=== PATIENT | male | born 1970 | race Caucasian/White ===

== ENCOUNTER 2017-05-01 09:19 | Emergency (ER) | payer OTHER ==
[~2017-05-01] VITALS: Ht 165.1 cm; Wt 65.0 kg
[2017-05-01 09:24] VITALS: BP 147/89; PULSE 79; RESP 16; TEMP 98; O2SAT 98
[2017-05-01] MEDS ORDERED: PRAZ5CAP PO (09:34)
[2017-05-01] MEDS ORDERED: VENL75TA PO (09:34)
[2017-05-01] MEDS ORDERED: ATOR20TA15 PO (09:34)
[2017-05-01] MEDS ORDERED: LORA-650 PO (09:34)
[2017-05-01] MEDS ORDERED: SODIUM CHLOR 0.9% 1000 ML INJ 1,000 ML IV ONE (09:36)
--- NOTE | 2017-05-01 09:42 | PD ---
HPI Chief Complaint: Neuro Symptoms/ Deficits Time Seen by Provider: 09:36 Travel History International Travel<30 days: No Contact w/Intl Traveler<30days: No Traveled to known affect area: No History of Present Illness HPI 46-year-old male with history of migraine headaches, hypertension, presents to the ER today because he has had 3 days' history of headaches, this morning woke up and started having tingling around his lips and in his left arm, drove himself from [place] to the [place], was sent in for further evaluation for neurological symptoms. He states that he feels like his head is "swimming", feels like he was dizzy. He denies any difficulty walking, and numbness, weakness, or any other symptoms. He denies any chest pains, shortness of breath , vomiting, vision change, or other issues. He states that the headache is now just about gone. Modifying Factors: None Associated Signs & Symptoms: Headaches, paresthesias in the lip and left arm Risk Factors: History of migraine headaches PFSH Past Medical History Arthritis: Yes High Cholesterol: Yes GERD: Yes Headaches: Yes Kidney Stones: Yes Pneumonia: Yes Influenza Vaccination: Yes Past Surgical History Cholecystectomy: Yes Genitourinary Surgery: Yes (stents) Social History Alcohol Use: No (occas) Tobacco Use: Yes Substance Use: No Allergies-Medications (Allergen,Severity, Reaction): Coded Allergies: No Known Allergies (Unverified , 05/01/17) Reported Meds & Prescriptions Reported Meds & Active Scripts Active Reported Allergy Relief (Loratadine) 10 Mg Tab 10 Mg PO DAILY Atorvastatin (Atorvastatin Calcium) 20 Mg Tab Unknown Dose PO HS Effexor (Venlafaxine HCl) 75 Mg Tab 75 Mg PO Q12H Prazosin (Prazosin HCl) 5 Mg Cap 5 Mg PO HS Review of Systems Except as stated in HPI: all other systems reviewed are Neg Physical Exam Narrative GENERAL: Well-developed middle age male patient currently in no acute distress. Awake and oriented 3. SKIN: Focused skin assessment warm/dry. HEAD: Atraumatic. Normocephalic. EYES: Pupils equal and round. No scleral icterus. No injection or drainage. ENT: No nasal bleeding or discharge. Mucous membranes pink and moist. NECK: Trachea midline. No JVD. CARDIOVASCULAR: Regular rate and rhythm. No murmur appreciated. Pulses are present and equal bilaterally. RESPIRATORY: No accessory muscle use. Clear to auscultation. Breath sounds equal bilaterally. GASTROINTESTINAL: Abdomen soft, non-tender, nondistended. Hepatic and splenic margins not palpable. MUSCULOSKELETAL: No obvious deformities. No clubbing. No cyanosis. No edema. NEUROLOGICAL: Awake and alert. No obvious cranial nerve deficits. Motor grossly within normal limits. Normal speech. No pronator drift. PSYCHIATRIC: Appropriate mood and affect; insight and judgment normal. Data Data Last Documented VS Vital Signs Date Time Temp Pulse Resp B/P (MAP) Pulse Ox O2 Delivery O2 Flow Rate FiO2 05/01/17 11:40 75 16 130/89 (103) 96 Room Air 05/01/17 09:24 98.0 Orders Orders Complete Blood Count With Diff (05/01/17 09:36) Comprehensive Metabolic Panel (05/01/17 09:36) Ct Brain W/O Iv Contrast(Rout) (05/01/17 09:36) Ecg Monitoring (05/01/17 09:36) Iv Access Insert/Monitor (05/01/17 09:36) Oximetry (05/01/17 09:36) Sodium Chloride 0.9% Flush (Ns Flush) (05/01/17 09:45) Sodium Chlor 0.9% 1000 Ml Inj (Ns 1000 M (05/01/17 09:36) Ed Discharge Order (05/01/17 11:45) Labs Laboratory Tests Test 05/01/17 09:13 White Blood Count 12.1 TH/MM3 Red Blood Count 4.21 MIL/MM3 Hemoglobin 13.8 GM/DL Hematocrit 40.3 % Mean Corpuscular Volume 95.9 FL Mean Corpuscular Hemoglobin 32.8 PG Mean Corpuscular Hemoglobin Concent 34.2 % Red Cell Distribution Width 12.5 % Platelet Count 329 TH/MM3 Mean Platelet Volume 8.2 FL Neutrophils (%) (Auto) 61.9 % Lymphocytes (%) (Auto) 28.0 % Monocytes (%) (Auto) 7.0 % Eosinophils (%) (Auto) 2.1 % Basophils (%) (Auto) 1.0 % Neutrophils # (Auto) 7.5 TH/MM3 Lymphocytes # (Auto) 3.4 TH/MM3 Monocytes # (Auto) 0.9 TH/MM3 Eosinophils # (Auto) 0.3 TH/MM3 Basophils # (Auto) 0.1 TH/MM3 CBC Comment DIFF FINAL Differential Comment Blood Urea Nitrogen 10 MG/DL Creatinine 1.06 MG/DL Random Glucose 60 MG/DL Total Protein 6.9 GM/DL Albumin 3.6 GM/DL Calcium Level 8.4 MG/DL Alkaline Phosphatase 90 U/L Aspartate Amino Transf (AST/SGOT) 23 U/L Alanine Aminotransferase (ALT/SGPT) 43 U/L Total Bilirubin 0.2 MG/DL Sodium Level 142 MEQ/L Potassium Level 3.9 MEQ/L Chloride Level 110 MEQ/L Carbon Dioxide Level 26.5 MEQ/L Anion Gap 6 MEQ/L Estimat Glomerular Filtration Rate 75 ML/MIN [facility] Medical Decision Making Medical Screen Exam Complete: Yes Emergency Medical Condition: Yes Medical Record Reviewed: Yes Interpretation(s) EKG shows NSR, no ST elevation or depression, and no arrhythmias. No significant T-wave inversions. Laboratory Tests Test 05/01/17 09:13 White Blood Count 12.1 TH/MM3 (4.0-11.0) Red Blood Count 4.21 MIL/MM3 (4.50-5.90) Random Glucose 60 MG/DL (74-106) Calcium Level 8.4 MG/DL (8.5-10.1) Chloride Level 110 MEQ/L (98-107) Estimat Glomerular Filtration Rate 75 ML/MIN (>89) Last [address] 05/01/17 0936 Signed Impressions: Service Date/Time: Monday, May 01, 2017 09:53 - CONCLUSION: Negative for acute process. Anjel Wayne MD FACR Differential Diagnosis Atypical migraine headache versus TIA/CVA versus metabolic issues Narrative Course CAT scan did not show any signs of acute cranial processes. Patient has no focal neurological deficits on evaluation. Vital signs are stable. At this point, he appears to be doing well, but I would recommend further neurological evaluation and I have talked him about observation admission for further evaluation but patient states that he feels well, does not want to be admitted. Considering that he has no focal neurological deficits, he will be released with follow-up to primary care physician and neurology for this issue. Return for any worsening in symptoms. A TIA cannot be completely ruled out in this case but the patient does not have any focal deficits, no significant focal neurological symptoms. I have talked him about the fact that if this was a TIA , a further CVA can occur and patient states understanding, still wants to be treated as an outpatient rather than inpatient. The plan was discussed with him he states understanding. Diagnosis Primary Impression: Headache Disposition: 01 DISCHARGE HOME Condition: Stable Villa Lee MD May 01, 2017 09:42
[2017-05-01] MEDS: SODIUM CHLORIDE 0.9% FLUSH 10 ML FLUSH IVF PRN ×2 (09:51→12:01)
[2017-05-01 10:02] LABS: AUTOMATED NEUTROPHIL # 7.5 TH/MM3 (1.8-7.7); BASOPHIL # 0.1 TH/MM3 (0-0.2); EOSINOPHIL # 0.3 TH/MM3 (0-0.4); EOSINOPHIL % 2.1 % (0.0-4.0); HEMATOCRIT 40.3 % (39.0-51.0); HEMO FLAGS DIFF FINAL; LYMPHOCYTE # 3.4 TH/MM3 (1.0-4.8); MEAN CELL VOLUME 95.9 FL (80.0-100.0); MEAN CORPUSCULAR HEMOGLOBIN 32.8 PG (27.0-34.0); MEAN CORPUSCULAR HGB CONC 34.2 % (32.0-36.0); NEUT % 61.9 % (16.0-70.0); PLATELET COUNT 329 TH/MM3 (150-450); RED BLOOD COUNT 4.21 MIL/MM3 (4.50-5.90); RED CELL DISTRIBUTION WIDTH 12.5 % (11.6-17.2); WHITE BLOOD COUNT 12.1 TH/MM3 (4.0-11.0)
--- NOTE | 2017-05-01 10:17 | RADRPT ---
EXAM DATE/TIME: 05/01/2017 09:53 [facility] COMPARISON: No previous studies available for comparison. INDICATIONS : Dizziness, headache, left arm weakness RADIATION DOSE: 33.99 CTDIvol (mGy) MEDICAL HISTORY : None SURGICAL HISTORY : Cholecystectomy. ENCOUNTER: Initial ACUITY: 1 day PAIN SCALE: 3/10 LOCATION: cranial TECHNIQUE: Multiple contiguous axial images were obtained of the head. Using automated exposure control and adj ustment of the mA and/or kV according to patient size, radiation dose was kept as low as reasonably a chievable to obtain optimal diagnostic quality images. DICOM format image data is available electro nically for review and comparison. FINDINGS: CEREBRUM: The ventricles are normal for age. No evidence of midline shift, mass lesion, hemorrhage or acute in farction. No extra-axial fluid collections are seen. POSTERIOR FOSSA: The cerebellum and brainstem are intact. The 4th ventricle is midline. The cerebellopontine angle i s unremarkable. EXTRACRANIAL: The visualized portion of the orbits is intact. SKULL: The calvaria is intact. No evidence of skull fracture. CONCLUSION: Negative for acute process. Anjel Wayne MD FACR on May 01, 2017 at 10:14 Board Certified Radiologist. This report was verified electronically.
[2017-05-01 10:32] LABS: ANION GAP 6 MEQ/L (5-15); AST (GOT) 23 U/L (15-37); BICARBONATE 26.5 MEQ/L (21.0-32.0); BLOOD UREA NITROGEN 10 MG/DL (7-18); CHLORIDE 110 MEQ/L (98-107); POTASSIUM 3.9 MEQ/L (3.5-5.1); SODIUM (NA) 142 MEQ/L (136-145)
[2017-05-01 10:36] LABS: ALKALINE PHOSPHATASE 90 U/L (45-117); ALT (GPT) 43 U/L (12-78); GLOMERULAR FILTRATION RATE 75 ML/MIN (>89); TOTAL BILIRUBIN ADULT 0.2 MG/DL (0.2-1.0)
[2017-05-01 11:40] VITALS: BP 130/89; PULSE 75; RESP 16; O2SAT 96
[2017-05-01] MEDS ORDERED: ASPIRIN 325 MG TAB PO ONE (12:00)
--- NOTE | 2017-05-03 18:58 | EKG ---
Date Performed: 05/01/2017 Time Performed: 09:29:27 PTAGE: 46 years EKG: Sinus rhythm NORMAL ECG NO PREVIOUS TRACING DOCTOR: Nasir Salinas Interpretating Date/Time 05/03/2017 18:56:57
== END 2017-05-01 12:07 | disposition home or self-care (01) ==
LOC: NEPC 09:19
DX: R51 Headache (principal); R20.2 Paresthesia of skin; Z72.0 Tobacco use
CPT/HCPCS: 70450; 80053; 85025; 93005; 96360; 96361; 99285; J7030